=== PATIENT | male | born 1955 | race Caucasian/White ===

== ENCOUNTER 2017-09-01 06:09 | Day surgery (SDC) | payer OTHER, BC ==
[~2017-09-01 06:09] MED LIST: Sodium Chloride 0.9% 10 ML Syringe FLUSH PRN
[2017-09-01] MEDS ORDERED: fentaNYL 100 MCG/2 ML SDV IV ONE (06:10)
[2017-09-01] MEDS ORDERED: Midazolam 1 MG/ML 2 ML SDV IV ONE (06:10)
[2017-09-01] MEDS ORDERED: fentaNYL 100 MCG/2 ML SDV ONE (06:16)
[2017-09-01] MEDS ORDERED: Midazolam 1 MG/ML 2 ML SDV ONE (06:16)
[2017-09-01] MEDS: Dextrose 5%-0.45% NaCl 1,000 ML IV SCH (06:30)
[2017-09-01] MEDS: fentaNYL 100 MCG/2 ML SDV IV ONE ×2 (07:01→07:02)
[2017-09-01] MEDS: Midazolam 1 MG/ML 2 ML SDV IV ONE ×3 (07:02→07:04)
[2017-09-01 09:12] VITALS: BP 143/68
--- NOTE | 2017-09-01 10:58 | OR ---
DATE: 09/01/2017 PROCEDURE: Total colonoscopy, NBI, and cold snare polypectomy. INSTRUMENT USED: CF-H180AL Olympus video colonoscope. PREMEDICATIONS: Fentanyl 100 mcg intravenous, Versed 3 mg intravenous. Nasal O2 cannula. The procedure was done under pulse oximetry, BP recording, and system support developer INDICATION: Screening colonoscopic examination is done for detection of any polypoid lesions and removal, endoscopic hemostasis therapy if needed. DESCRIPTION OF PROCEDURE: Initial rectal exam was unremarkable. Rigid anoscopy was normal. The colonoscope was passed with ease up to the ileocecal area, photographs were taken of the normal-appearing cecum, identified by landmarks of appendiceal orifice and double-bulged ileocecal folds. No bleeding was noted from any of the visualized areas at the commencement of the examination. No stricture. No vascular ectasia. No large isolated ulcerations seen. No evidence of diffuse inflammatory bowel disease in the form of friability, contact bleeding, or ulcerations. Probing the proximal sides of folds and flexures, using adequate distention and clearing up the stool material, withdrawal of the scope was made. In the mid ascending colon, 5 mm sized benign- appearing polyp was noted, NBI views were obtained, photographs were taken, cold snare polypectomy was done, the tissue was retrieved and sent for histopathology. No bleeding was noted from any of the visualized areas at the completion of examination. IMPRESSION: Ascending colon polyp. The patient tolerated the procedure well. [facility] /[id number]
--- NOTE | 2017-09-01 11:17 | LETTER ---
09/01/2017 [facility] [address] [place] [address], [place] [id number] RE: GYPSY ZAVALA : 1955 Dear Ms. Weiss: Mr. Mckeon Rene Zavala had colonoscopic examination done this morning and he tolerated the procedure well. I herewith send a copy of the endoscopy note and photographs for your review. Thank you Sincerely, [facility] /[id number]
== END 2017-09-01 08:59 | disposition home or self-care (01) ==
LOC: DL.ENDO 06:09
PROVIDERS: ATTEND Internal Medicine Gastroenterology
DX: Z12.11 Encounter for screening for malignant neoplasm of colon (principal); D12.2 Benign neoplasm of ascending colon; E66.9 Obesity, unspecified; I10 Essential (primary) hypertension
CPT/HCPCS: 45385; J2250; J3010; J7042